=== PATIENT | female | born 1950 | race Caucasian/White ===

== ENCOUNTER → 2017-01-20 | Outpatient (CLI) | payer MEDICARE, OTHER ==
[~2017-01-20] MED LIST: ASPIRIN LOW DOS81 M1 PO; CIPRO 500MG TA500 MG PO; CLONIDINE HYDR0.1 MG PO; CORRECTOL5 MG PO; CRESTOR5 MG PO; FLUOXETINE20 MG PO; MIRALAX PO255 GM/BOT PO; PREMARIN 0.3MG0.3 MG PO; VITAMIN D50000 I1 PO; WELLBUTRIN XL150 MG PO; WELLBUTRIN XL300 MG PO; ZOLPIDEM 10MG T10 MG PO
--- NOTE | 2017-01-22 11:39 | RADIOLOGY REPORT PS360 ---
DEXA SCAN.-BONE DENSITY STUDY HIPS AND LUMBAR SPINE HISTORY: Postmenopausal female CT 66year-old female. Previous hormone replacement therapy but not currently. A previous ankle fracture 20 years ago. Ovaries removed. Low calcium intake. Takes vitamin D TECHNIQUE: DEXA scan hip and lumbar spine The most complete data summary and color graphic presentation of the today's ( and any prior ) DEXA findings are available in PACS. Definition and treatment guidelines included. COMPARISON: None listed LUMBAR SPINE: Normal bone density all levels L1 vertebral body demonstrates the lowest T score 0.5 with BMD1.193 g/cm sq Overall mean lumbar L1-L4 T score 1.3 with BMD1.339 g/cm sq . . HIPS: Low normal bone density bilaterally Femoral neck density is best predictor of hip fracture risk . Left femoral neck demonstrates the lowest T score -0.8 with BMD0.932 g/cm sq . Right femoral neck T score -0.5 with BMD 0.966 Average all regions yields today's Hip Mean T score 0.4 with BMD1.055 g/cm sq .. = Normal bone density IMPRESSION 1. LUMBAR SPINE: Normal bone density at all levels. L1 vertebra with lowest bone density T score is 0.5 ( normal ) with BMD 1.193 2. HIPS: Normal bone density WHO criteria for post-menopausal, Women: Normal: T-score at or above -1 SD Osteopenia: T-score between -1 and -2.5 SD Osteoporosis: T-score at or below -2.5 SD
--- NOTE | 2017-01-22 11:41 | RADIOLOGY REPORT PS360 ---
DIG MAMM-SCREEN DIONTE W/CAD CAD Screening ORDERING PHYSICIAN : Damari Kamara APRN PATIENT AGE: 66 years GENDER: Female COMPARISON: Previous mammograms: None available prior Studies from [facility] are no longer available. INDICATION: Routine screening 66-year-old. No hormones. No new complaints. Noncontributory family history TECHNIQUE: Standard CC and MLO images were obtained. R2 CAD reviewed. FINDINGS: Low-density fatty breast bilaterally. This facilitates optimal mammography evaluation. No dominant mass nor suspicious calcifications in either breast. CAD highlights no areas of concern either. . IMPRESSION: Negative bilateral mammogram. Low-density breast Routine Bilateral follow-up in one year recommended. BI-RADS CATEGORY: 1_Negative RECOMMENDED FOLLOWUP: 12M 12 MONTH FOLLOW-UP (A letter has been sent to the patient regarding results of the study.)
== END ==
LOC: RAD 09:38
DX: Z78.0 Asymptomatic menopausal state (principal); Z13.820 Encounter for screening for osteoporosis; Z12.31 Encounter for screening mammogram for malignant neoplasm of breast
CPT/HCPCS: G0202